=== PATIENT | male | born 1975 | race Caucasian/White ===

== ENCOUNTER 2017-01-09 18:50 | Inpatient (IN) | payer OTHER ==
[~2017-01-09] VITALS: Ht 165.1 cm; Wt 103.4 kg
[2017-01-09] MEDS ORDERED: IV NS 0.9% 1,000 ML BAG IV ONE (19:30)
--- NOTE | 2017-01-09 19:30 | NUR ---
Note tulio in EDM - 01/09/17 at 2152 by JAMIE 41 YP FEMALE BB AMBULANCE. PT IS ALERT X 3, C/O ABD PRESSURE LIKE PAIN. PT DS TO ER BED, SKIN WARM AND DRTY, RR EVEN AND UNLABORED. AWAITING ORDERS FROM PROVIDER
--- NOTE | 2017-01-09 19:30 | NUR ---
41 YO MALE BB AMBULANCE FROM [facility]. PT IS ALERT X 3, C/O ABDOMINAL PRESSURE LIKE PAIN. PT5 GOWNED, PLACED ON DRIER OPERATOR HELPER. SKIN WARM AND DRY, RR EVEN AND UNLABORED. NOTED COLOSTOMY BAG AND MAR CATH IN PLACE INFLATED PAD BUFFER. AWAITING ORDERS FROM PROVIDER, WILL CONTINUE TO MONITOR
[2017-01-09] MEDS ORDERED: ONDANSETRON HCL/PF 4 MG/2 ML VIAL ONE (19:35)
[2017-01-09] MEDS ORDERED: MORPHINE SULFATE INJ 4 MG/ML DISP.SYRIN ONE (19:36)
[2017-01-09 19:56] LABS: BASOPHILS % (AUTO) 0.9 % (0.0-2.0); EOSINOPHILS # (AUTO) 0.1 /CMM (0.0-0.7); EOSINOPHILS % (AUTO) 3.1 % (0.0-6.0); HEMATOCRIT 36 % (39-51); HEMOGLOBIN 11.5 g/dL (13.5-17.5); LYMPHOCYTES # (AUTO) 1.5 /CMM (0.8-4.8); LYMPHOCYTES % (AUTO) 31.6 % (20.0-44.0); MEAN CORPUSCULAR HEMOGLOBIN 25 PG (26.0-33.0); MEAN CORPUSCULAR HGB CONC 32 g/dl (31.0-36.0); MEAN CORPUSCULAR VOLUME 76 fL (80-96); MONOCYTES # (AUTO) 0.2 /CMM (0.1-1.30); MONOCYTES % (AUTO) 4.4 % (2.0-12.0); PLATELET COUNT (AUTO) 203 /CMM (150-450); RDW COEFFICIENT OF VARIATION 16.4 (11.5-15.0); RED BLOOD CELL COUNT(AUTO) 4.69 MIL/uL (4.5-6.0); WHITE BLOOD COUNT (AUTO) 4.8 K/uL (4.3-11.0)
[2017-01-09] MEDS ORDERED: MORPHINE SULFATE INJ 2 MG/ML DISP.SYRIN IV ONE (20:00)
[2017-01-09] MEDS ORDERED: ONDANSETRON HCL/PF - ER 4 MG/2 ML VIAL IV ONE (20:00)
[2017-01-09 20:06] LABS: CALCIUM, SERUM 8.3 mg/dL (8.5-10.1); CREATININE 0.8 mg/dL (0.6-1.3); POTASSIUM 3.6 mmol/L (3.5-5.1)
[2017-01-09 20:10] LABS: INR 1.02 (0.87-1.13); PROTHROMBIN TIME 10.6 SECS (9.5-12.7)
[2017-01-09 20:12] LABS: ALBUMIN 3.1 g/dL (3.4-5.0); BILIRUBIN,DIRECT 0.1 mg/dL (0.0-0.2); BILIRUBIN,TOTAL 0.2 mg/dL (0.2-1.0); TOTAL PROTEIN, SERUM 8.6 g/dL (6.4-8.2)
--- NOTE | 2017-01-09 20:21 | NUR ---
22G RIGHT SHOULD IV STARTED, MEDICATED PT ORDERED Addendum: 01/09/17 at 2151 by JAMIE 22G RIGHT SHOULDER IV STARTED
[2017-01-09 21:09] LABS: APPEARANCE,URINE Clear (CLEAR); BILIRUBIN,URINE Negative (NEGATIVE); BLOOD, URINE Small Ery/uL (NEGATIVE); COLOR,URINE Yellow (YELLOW); KETONES,URINE Negative (NEGATIVE); LEUKOCYTE ESTERASE ,URINE Small (NEGATIVE); NITRITE, URINE Negative (NEGATIVE); PH,URINE 6.5 (5.0-8.0); PROTEIN,URINE Trace mg/dl (NEGATIVE); UGLUCOSE Negative (NEGATIVE); UROBILINOGEN,URINE 0.2 EU/dL (0.2)
[2017-01-09 21:22] LABS: BACTERIA,URINE Few /HPF (None Seen); SQUAMOUS EPITHELIAL CELL,UR Few /HPF (None Seen)
--- NOTE | 2017-01-09 21:29 | NUR ---
FIXED MAR CATH ORDERED
--- NOTE | 2017-01-09 21:50 | NUR ---
CALLED DR LALITHA MAYNARD FOR PANEL ADMISSION
--- NOTE | 2017-01-09 22:00 | NUR ---
CALLED NURSING SUSTAINABLE DESIGN COORDINATOR FOR M/S BED
--- NOTE | 2017-01-09 22:30 | NUR ---
PT IS NOTED TO BE TACHYCARDIC. PER KYA PEÑA HE SPOKE WITH NUTELAPATHY AND THEY DECIDED PT WILL GO TO MS BED. WILL CONTINUE TO MONITIOR
[2017-01-09 23:00] VITALS: BP 141/85
--- NOTE | 2017-01-09 23:00 | NUR ---
MS RN INITIAL NOTE PT ADMITTED FROM ER FROM [facility]. PT WAS RECEIVED IN NO ACUTE DISTRESS. A/O X3. ON RA WITH ADEQUATE 02 SATURATION LEVEL. MAR CATHETER DRAINING WITH YELLOW CLOUDY URINE WITH SEDIMENT. IV 22G IN RIGHT SHOULDER WITH POSSIBLE DETACHMENT. CLEANED PATIENT AND TOOK PICTURES OF WOUNDS BEFORE DOING WOUND CARE. ALL NEEDS MET. COMFORT AND SAFETY MEASURES ENSURED. WILL CONTINUE TO MONITOR FOR ANY CHANGES.
[2017-01-09] MEDS ORDERED: ENOXAPARIN SODIUM 40 MG/0.4 ML DISP.SYRIN SQ ONE (23:52)
[2017-01-10] VITALS: BP 141/85
[2017-01-10] MEDS ORDERED: ACETAMINOPHEN 325 MG TABLET PO PRN
[2017-01-10] MEDS ORDERED: ENOXAPARIN SODIUM 40 MG/0.4 ML DISP.SYRIN SQ SCH
[2017-01-10] MEDS ORDERED: ONDANSETRON HCL/PF 4 MG/2 ML VIAL IVP PRN
[2017-01-10] MEDS ORDERED: Z GUARD REMEDY 2 OZ OINT TP PRN
[2017-01-10] MEDS ORDERED: MAGNESIUM HYDROXIDE 30 ML UDC PO PRN
[2017-01-10] MEDS ORDERED: ZOLPIDEM TARTRATE 5 MG TABLET PO PRN
[2017-01-10] MEDS: IV NS 0.9% 1,000 ML IV PRN ×2 (00:02→19:03)
--- NOTE | 2017-01-10 02:00 | NUR ---
RN NOTE CAPACITY PLANNING ENGINEER CAME DOWN TO TRY AND START NEW IV LINE SINCE THE IV LINE THAT WAS IN ON ADMISSION IS NO LONGER USEFUL. WILL CONTINUE TO MONITOR. ONE WAS STARTED ON RAC 22G.
[2017-01-10] MEDS ORDERED: BACL20TA PO (02:47)
[2017-01-10] MEDS ORDERED: GABA-536 PO (02:52)
[2017-01-10] MEDS ORDERED: LEVO750T21 PO (02:57)
[2017-01-10] MEDS ORDERED: SULF1TAB47 PO (02:58)
[2017-01-10] MEDS ORDERED: ZINC220C8 PO (03:00)
[2017-01-10] MEDS ORDERED: HYDR-552 PO (03:03)
[2017-01-10] MEDS ORDERED: ASCO500T9 PO (03:18)
[2017-01-10] MEDS ORDERED: DOCU-170 PO (03:22)
[2017-01-10] MEDS ORDERED: LACT10SO PO (03:23)
[2017-01-10] MEDS ORDERED: MULT1TAB73 PO (03:26)
[2017-01-10] MEDS ORDERED: SENN8.6T6 PO (03:27)
[2017-01-10 04:00] VITALS: BP 140/77
[2017-01-10] MEDS ORDERED: DEXTROSE 50%-WATER 50 ML DISP.SYRIN IV PRN (05:00)
[2017-01-10] MEDS ORDERED: HYDROCODONE/APAP 5/325MG 1 EACH TABLET PO SCH ×2 (05:00→07:30)
[2017-01-10] MEDS ORDERED: SENNOSIDES 8.6 MG TABLET PO PRN (05:00)
[2017-01-10] MEDS ORDERED: GABAPENTIN 400 MG CAPSULE ONE (05:28)
[2017-01-10 06:17] LABS: BASOPHILS % (AUTO) 0.7 % (0.0-2.0); EOSINOPHILS # (AUTO) 0.1 /CMM (0.0-0.7); EOSINOPHILS % (AUTO) 2.6 % (0.0-6.0); HEMATOCRIT 35 % (39-51); HEMOGLOBIN 11.3 g/dL (13.5-17.5); LYMPHOCYTES # (AUTO) 0.9 /CMM (0.8-4.8); LYMPHOCYTES % (AUTO) 16.9 % (20.0-44.0); MEAN CORPUSCULAR HEMOGLOBIN 25 PG (26.0-33.0); MEAN CORPUSCULAR HGB CONC 33 g/dl (31.0-36.0); MEAN CORPUSCULAR VOLUME 77 fL (80-96); MONOCYTES # (AUTO) 0.3 /CMM (0.1-1.30); MONOCYTES % (AUTO) 5.6 % (2.0-12.0); NEUTROPHILS # (AUTO) 4.1 /CMM (1.8-8.9); NEUTROPHILS % (AUTO) 74.2 % (43.0-81.0); PLATELET COUNT (AUTO) 150 /CMM (150-450); RDW COEFFICIENT OF VARIATION 17.5 (11.5-15.0); RED BLOOD CELL COUNT(AUTO) 4.48 MIL/uL (4.5-6.0); WHITE BLOOD COUNT (AUTO) 5.5 K/uL (4.3-11.0)
--- NOTE | 2017-01-10 06:32 | NUR ---
MS RN CLOSING NOTE PT IS IN NO ACUTE DISTRESS. PT IS ON RA WITH 02 SATURATION WNL. IV LINE ON RIGHT SHOULDER IS NO LONGER PATENT AND NEW IV PLACED IN RAC 22G IS NO LONGER PATENT WELL. OSTOMY BAG IS FILLING WELL AND CHANGED X1 DURING SHIFT. MAR CATHETER IS CLEAN DRY AND PATENT DRAINING YELLOW CLOUDY URINE WITH SEDIMENTS. SAFETY AND COMFORT MEASURES PLACED AND WILL ENDORSE CARE TO AM NURSE.
[2017-01-10 06:39] LABS: CALCIUM, SERUM 8.2 mg/dL (8.5-10.1); CREATININE 0.8 mg/dL (0.6-1.3); MAGNESIUM 1.6 mg/dL (1.8-2.4); PHOSPHORUS 2.8 mg/dL (2.5-4.9); POTASSIUM 4.1 mmol/L (3.5-5.1)
[2017-01-10 06:52] LABS: THYROID STIMULATING HORMONE 6.287 uIU/mL (0.358-3.74)
--- NOTE | 2017-01-10 07:10 | NUR ---
RN INITIAL NOTE PATIENT RECEIVED IN BED SLEEPING. EASILY AROUSED, ALERT AND ORIENTED. ABLE TO MAKE NEEDS KNOWN. NO S/S OF PAIN OR DISCOMFORT. RESPIRATIONS ARE EVEN AND UNLABORED. NO S/S OF RESPIRATORY DISTRESS OR SOB. SATING WELL ON ROOM AIR. MAR CATHETER DRAINING TO GRAVITY. IV SITE LEAKING. SCHEDULED FOR MIDLINE INSERTION THIS AM. SKIN IS WARM AND DRY TO TOUCH. SAFETY PRECAUTIONS IMPLEMENTED, BED IN LOCKED, LOW POSITION WITH TWO SIDE RAILS UP. CALL LIGHT AND BELONGINGS WITHIN EASY REACH. WILL CONTINUE TO MONITOR.
[2017-01-10 08:00] VITALS: BP 141/78
[2017-01-10] MEDS: GABAPENTIN 400 MG CAPSULE PO SCH ×3 (08:11→16:15)
[2017-01-10] MEDS: ASCORBIC ACID 500 MG TABLET PO SCH ×2 (08:11→16:15)
[2017-01-10] MEDS: BACLOFEN (10 MG) 10 MG TABLET PO SCH ×4 (08:11→21:00)
[2017-01-10] MEDS: LACTULOSE 10 G/15 ML UDC (PYXIS) PO SCH (08:11)
[2017-01-10] MEDS: ZINC SULFATE 220 MG CAPSULE PO SCH (08:12)
[2017-01-10] MEDS: PANTOPRAZOLE 40 MG TABLET.DR PO SCH (08:12)
[2017-01-10] MEDS: DOCUSATE SODIUM 100 MG CAPSULE PO SCH ×2 (08:12→16:15)
[2017-01-10] MEDS: MULTIVITAMINS,THERAGRAN 1 UDTAB TABLET PO SCH (08:15)
[2017-01-10] MEDS: BLOOD SUGAR DIAGNOSTIC 1 EACH STRIP VI SCH ×4 (08:15→21:00)
[2017-01-10] MEDS ORDERED: BACLOFEN (10 MG) 10 MG TABLET PO SCH (09:00)
[2017-01-10] MEDS: *INSULIN REGULAR(HUMULIN R)HUM 100 UNIT/ML VIAL SQ PRN (09:50)
[2017-01-10] MEDS: HYDROCODONE/APAP 5/325MG 1 EACH TABLET PO PRN ×2 (11:37→18:52)
[2017-01-10] MEDS: Magnesium 1GM/D5W 100ML PREMIX 100 ML IV SCH ×2 (11:37→12:47)
--- NOTE | 2017-01-10 13:22 | NUR ---
Social service consult requested by MELANIE ZHANNA Callahan to assess living situation. Pt. is a 41year old male who was admitted to [facility] for Osteomyelitis. ISABEL and supportive employment case manager Martha met with pt. bedside. Pt. is alert and oriented x3. Pt. appears disheveled and was lying in bed. Pt. informed SW he resides at a board and care located in [place] but could not recall the name of the facility or contact information. Pt. appeared confused at times. Pt. states he was at [facility]. Pt. states he has no source of income. Pt. gave SW phone number to his sister Ronit . ISABEL contacted pt. sister Ronit, who informed SW that she does not know the name or contact information for the board and care that pt. resides at. She informed SW that her dad and herself support pt. financially.
--- NOTE | 2017-01-10 14:18 | NUR ---
SW was informed by watch caser Martha that pt's RN Tara informed her that pt. resides at [facility] located at [address] [place] [address]. The sales administrator is Mayra Romero .
[2017-01-10 16:00] VITALS: BP 154/88
[2017-01-10] MEDS: INSULIN REGULAR, HUMAN 100 UNIT/ML 3 ML VIAL SQ PRN ×2 (17:58→21:20)
[2017-01-10] MEDS: MAG HYDROX/AL HYDROX/SIMETH 30 ML UDC PO PRN (18:51)
[2017-01-10] MEDS: ENOXAPARIN SODIUM 40 MG/0.4 ML DISP.SYRIN SQ SCH (21:06)
[2017-01-10] MEDS ORDERED: SULFAMETHOXAZOLE/TRIMETHOPRIM 10 ML in IV D5W 250 ML IV SCH (22:00)
[2017-01-10] MEDS: CEFEPIME 1 GM in IV D5W 50 ML IV SCH (23:27)
--- NOTE | 2017-01-10 23:27 | NUR ---
CLARIFIED WITH MR DRAKE THAT MEDICATION BACTRIM WAS ORDERED TO BE GIVEN EVERY TWO HOURS, VERIFIED THAT THE ORDER WAS ENTERED BY MISTAKE AND THAT SHE WOULD LIKE TO INITIATE MEDICATION IN THE AM AND TO HAVE PHARMACY TO DOSE, MEDICATION WAS MIXED AND SCANNED BY HAD NOT BE HANG YET SO IT WAS WAISTED, NURSING SHIPPING AND RECEIVING OPERATOR NOTIFIED OF WAISTING MEDICATION.
[2017-01-10] MEDS: MORPHINE SULFATE INJ 2 MG/ML DISP.SYRIN IV PRN (23:41)
[2017-01-11] VITALS: BP 138/79
[2017-01-11] MEDS: HYDROCODONE/APAP 5/325MG 1 EACH TABLET PO PRN ×4 (02:26→16:49)
[2017-01-11] MEDS: CEFEPIME 1 GM in IV D5W 50 ML IV SCH ×3 (05:24→20:15)
[2017-01-11] MEDS: MORPHINE SULFATE INJ 2 MG/ML DISP.SYRIN IV PRN ×3 (05:24→20:15)
[2017-01-11 06:33] VITALS: BP 104/61
[2017-01-11] MEDS: BLOOD SUGAR DIAGNOSTIC 1 EACH STRIP VI SCH ×4 (06:54→22:10)
[2017-01-11] MEDS: INSULIN REGULAR, HUMAN 100 UNIT/ML 3 ML VIAL SQ PRN (06:56)
--- NOTE | 2017-01-11 07:01 | NUR ---
MS RN CLOSING NOTE PT REMAINED STABLE DURING COOKING CHEF, NO SIGNIFICANT CHANGE OF CONDITION NOTED, WILL ENDORSE TO INCOMING NURSE FOR MILES.
[2017-01-11 07:06] LABS: BASOPHILS % (AUTO) 0.8 % (0.0-2.0); EOSINOPHILS # (AUTO) 0.2 /CMM (0.0-0.7); EOSINOPHILS % (AUTO) 4.3 % (0.0-6.0); HEMATOCRIT 29 % (39-51); HEMOGLOBIN 9.5 g/dL (13.5-17.5); LYMPHOCYTES # (AUTO) 0.9 /CMM (0.8-4.8); LYMPHOCYTES % (AUTO) 22.8 % (20.0-44.0); MEAN CORPUSCULAR HEMOGLOBIN 25 PG (26.0-33.0); MEAN CORPUSCULAR HGB CONC 33 g/dl (31.0-36.0); MEAN CORPUSCULAR VOLUME 77 fL (80-96); MONOCYTES # (AUTO) 0.3 /CMM (0.1-1.30); MONOCYTES % (AUTO) 8.5 % (2.0-12.0); NEUTROPHILS # (AUTO) 2.6 /CMM (1.8-8.9); NEUTROPHILS % (AUTO) 63.6 % (43.0-81.0); PLATELET COUNT (AUTO) 108 /CMM (150-450); RDW COEFFICIENT OF VARIATION 17.5 (11.5-15.0); RED BLOOD CELL COUNT(AUTO) 3.74 MIL/uL (4.5-6.0)
--- NOTE | 2017-01-11 07:30 | NUR ---
RN INITIAL NOTE PATIENT RECEIVED IN BED SLEEPING. EASILY AROUSED, ALERT AND ORIENTED. ABLE TO MAKE NEEDS KNOWN. NO S/S OF PAIN OR DISCOMFORT. RESPIRATIONS ARE EVEN AND UNLABORED. NO S/S OF RESPIRATORY DISTRESS OR SOB. SATING WELL ON ROOM AIR. MAR CATHETER DRAINING TO GRAVITY. MIDLINE KETURAH 20 [address] . SKIN IS WARM AND DRY TO TOUCH. SAFETY PRECAUTIONS OBSERVED. BED IN LOCKED, LOW POSITION WITH TWO SIDE RAILS UP. CALL LIGHT WITHIN REACH. WILL CONTINUE TO MONITOR.
[2017-01-11 07:38] LABS: CALCIUM, SERUM 7.7 mg/dL (8.5-10.1); CREATININE 0.8 mg/dL (0.6-1.3); MAGNESIUM 1.7 mg/dL (1.8-2.4); PHOSPHORUS 2.9 mg/dL (2.5-4.9); POTASSIUM 3.9 mmol/L (3.5-5.1)
--- NOTE | 2017-01-11 07:45 | NUR ---
WOUND CARE CONSULT PATIENT SEEN AND SKIN INTEGRITY ASSESSMENT DONE. PLEASE SEE MUSEUM PREPARATOR ASSESSMENT IN PCS FOR TODAY. PATIENT WITH FERNANDEZ AT 13. PATIENT IS ABLE TO REPOSITION HIMSELF WITH ASSIST, HE IS PARAPLEGIC BILATERAL LE, HAS COLOSTOMY FUNCTIONING WELL. PATIENT PRESENT WITH MULTIPLE PRESSURE ULCERS POA. PATIENT ON [facility] FOR TREATMENT. SURGICAL TEAM ON CASE AND PLANNING DEBRIDEMENT. TREATMENT ORDERS RECEIVED FROM SURGICAL TEAM. ALL DISCUSSED WITH NURSING STAFF. ALL PRESSURE ULCER PREVENTION MEASURES NOTED TO BE IN PLACE. MD IN AGREEMENT WITH PLAN OF CARE. Addendum: 01/11/17 at 0750 by ELISA HARTMANN WNDNU Amended: Links added.
[2017-01-11 08:00] VITALS: BP 164/105
[2017-01-11] MEDS ORDERED: Z GUARD REMEDY 2 OZ OINT TP PRN (08:00)
[2017-01-11] MEDS ORDERED: HYDROGEL DRESSING 90 GM TUBE TP PRN (08:00)
[2017-01-11] MEDS: BACLOFEN (10 MG) 10 MG TABLET PO SCH ×4 (08:13→20:15)
[2017-01-11] MEDS: LACTULOSE 10 G/15 ML UDC (PYXIS) PO SCH ×2 (08:13→09:00)
[2017-01-11] MEDS: DOCUSATE SODIUM 100 MG CAPSULE PO SCH ×2 (08:13→16:49)
[2017-01-11] MEDS: ZINC SULFATE 220 MG CAPSULE PO SCH (08:13)
[2017-01-11] MEDS: GABAPENTIN 400 MG CAPSULE PO SCH ×3 (08:14→16:49)
[2017-01-11] MEDS: MULTIVITAMINS,THERAGRAN 1 UDTAB TABLET PO SCH (08:14)
[2017-01-11] MEDS: ASCORBIC ACID 500 MG TABLET PO SCH ×2 (08:14→16:50)
[2017-01-11] MEDS: PANTOPRAZOLE 40 MG TABLET.DR PO SCH (08:14)
--- NOTE | 2017-01-11 08:19 | NUR ---
RN NOTE PATIENT REFUSED LACTULOSE STATES" I DONT NEED NO LACTULOSE " MEDICATION NOT ADMINISTERED. LATE ADMINSTRATION OF MEDICATION IV ANTIBIOTICS DUE TO THE DRUG NOT BEING AVAILABLE PHARMACY CONTACTED STATES THEY ARE WORKING ON THE ODER NOW
--- NOTE | 2017-01-11 08:36 | NUR ---
RN NOTE PT COMPANIED OF MAR CATHETER DISCOMFORT RN INSTRUCTED BY MD TO REPOSITION THE PATIENTS MAR PATIENT REFUSED REPOSITIONING AT THIS TIME HOWEVER THE PATIENT WILL BE OFFERED THIS AGAIN AT A LATER TIME. ALSO IT SHOULD BE NOTED THAT THE PATIENT HAS BLOOD TING IN COLOSTOMY BAG PATIENT STATES GENERALIZED PAIN THROUGHOUT HIS ENTIRE BODY, MINIMAL COLOSTOMY OUTPUT LAST SHIFT THE COLOSTOMY BAG WAS CHANGED ONCE THROUGH THE NIGHT
[2017-01-11] MEDS ORDERED: SULFAMETHOXAZOLE/TRIMETHOPRIM 10 ML in IV D5W 250 ML IV SCH (09:00)
[2017-01-11] MEDS: DAKINS QUARTER STRENGTH (0.125%) 480 ML BOTTLE TOP SCH ×2 (09:00→10:12)
[2017-01-11] MEDS: SULFAMETHOXAZOLE/TRIMETHOPRIM 15 ML in IV D5W 250 ML IV SCH ×2 (09:26→16:49)
[2017-01-11] MEDS: HYDROGEL DRESSING 90 GM TUBE TP SCH (10:11)
[2017-01-11] MEDS: Magnesium 1GM/D5W 100ML PREMIX 100 ML IV SCH ×2 (11:16→12:06)
[2017-01-11] MEDS ORDERED: SILVER NITRATE APPLICATOR 1 EA BOX TP ONE (11:30)
[2017-01-11] MEDS ORDERED: LIDOCAINE 2%-EPI 1:200,000 20 ML VIAL IJ ONE (12:00)
--- NOTE | 2017-01-11 12:26 | NUR ---
RN NOTE PATIENT REFUSE DEBRIDEMENT FOR TODAY . HOWEVER MD STATES SHE WILL TRY AGAIN TOMORROW. AFTER PATIENT REFUSED MULTIPLE TIMES DUE TO PAIN. NORCO ADMINISTERED HOWEVER PATIENT STATES HE NEEDS STRONGER PAIN MANAGEMENT. MD WILL BE NOTIFIED OF PATIENTS REQUEST AND WISHES FOR INCREASE IN PAINS MANAGEMENT, AND X-RAY FOR HIS BACK
[2017-01-11 16:00] VITALS: BP 145/86
--- NOTE | 2017-01-11 19:05 | NUR ---
RN OPENING NOTES RECEIVED REPORT FROM JENNIFER RUTHERFORD. PATIENT A/A/O X4, ABLE TO MAKE NEEDS KNOWN. BREATHING EVEN AND UNLABORED. NO C/O RESPIRATORY DISTRESS OR SOB. MAR CATH INTACT AND DRAINING YELLOW URINE. KETURAH MIDLINE #20 CDI, FLUIDS RUNNING @ 75ML/HR. SIDE RAILS UP, CALL LIGHT WITHIN REACH.
[2017-01-11 20:00] VITALS: BP 129/71
[2017-01-11] MEDS: ENOXAPARIN SODIUM 40 MG/0.4 ML DISP.SYRIN SQ SCH (20:16)
[2017-01-11] MEDS: *INSULIN REGULAR(HUMULIN R)HUM 100 UNIT/ML VIAL SQ PRN (22:11)
[2017-01-11] MEDS ORDERED: FLUCONAZOLE IN NS,PREMIX 200 MG in PREMIX 1 EA IV ONE ×2 (22:30)
--- NOTE | 2017-01-11 22:30 | NUR ---
RN NOTES SPOKE TO NELIA DRAKE REGARDING PATIENT'S C/O BACK PAIN AND PT'S REQUEST FOR BACK X-RAY AND ADDITIONAL PAIN MED. PER GAS MAKER HELPER, X-RAY WILL SHOW SAME RESULTS OF PREVIOUS X-RAY AND PAIN IS DUE TO DIAGNOSIS OF OSTEOMYELITIS. NO NEW ORDER RECEIVED FOR PAIN MED.
[2017-01-12] MEDS: SULFAMETHOXAZOLE/TRIMETHOPRIM 15 ML in IV D5W 250 ML IV SCH ×4 (00:40→23:08)
[2017-01-12 04:00] VITALS: BP 139/99
[2017-01-12] MEDS: IV NS 0.9% 1,000 ML IV PRN (05:37)
[2017-01-12] MEDS: CEFEPIME 1 GM in IV D5W 50 ML IV SCH ×3 (05:37→20:23)
[2017-01-12 06:27] LABS: BASOPHILS % (AUTO) 0.6 % (0.0-2.0); EOSINOPHILS # (AUTO) 0.2 /CMM (0.0-0.7); EOSINOPHILS % (AUTO) 5.6 % (0.0-6.0); HEMATOCRIT 31 % (39-51); MEAN CORPUSCULAR HEMOGLOBIN 25 PG (26.0-33.0); MEAN CORPUSCULAR HGB CONC 33 g/dl (31.0-36.0); MEAN CORPUSCULAR VOLUME 77 fL (80-96); MONOCYTES # (AUTO) 0.2 /CMM (0.1-1.30); MONOCYTES % (AUTO) 4.8 % (2.0-12.0); NEUTROPHILS # (AUTO) 2.3 /CMM (1.8-8.9); PLATELET COUNT (AUTO) 117 /CMM (150-450); RDW COEFFICIENT OF VARIATION 17.3 (11.5-15.0); RED BLOOD CELL COUNT(AUTO) 3.97 MIL/uL (4.5-6.0); WHITE BLOOD COUNT (AUTO) 3.7 K/uL (4.3-11.0)
[2017-01-12 06:49] LABS: CALCIUM, SERUM 7.8 mg/dL (8.5-10.1); CREATININE 0.8 mg/dL (0.6-1.3); MAGNESIUM 1.9 mg/dL (1.8-2.4)
--- NOTE | 2017-01-12 07:11 | NUR ---
RN CLOSING NOTES PATIENT RESTING IN BED, DOZING OFF INTERMITTENTLY. NO C/O RESPIRATORY DISTRESS OR SOB. PAIN MANAGED THROUGHOUT SHIFT. KETURAH INTACT W/ NS @ 75ML/HR, TOLERATING WELL. MAR INTACT AND DRAINING YELLOW URINE. OSTOMY BAG INTACT, CHANGED ONCE DURING SHIFT. NO SIGNIFICANT CHANGES DURING SHIFT. WILL ENDORSE MILES TO AM NURSE.
[2017-01-12 08:00] VITALS: BP 127/71
--- NOTE | 2017-01-12 08:00 | NUR ---
MS RN NOTES PATIENT IN BED RESTING, NO SOB OR ACUTE DISTRESS NOTED. BED IN LOW LOCKED POSITION. MIDLINE ON RIGHT UPPER ARM INTACT PATENT. WILL CONTINUE TO MONITOR.
[2017-01-12] MEDS: BLOOD SUGAR DIAGNOSTIC 1 EACH STRIP VI SCH ×4 (08:26→22:54)
[2017-01-12] MEDS: INSULIN REGULAR, HUMAN 100 UNIT/ML 3 ML VIAL SQ PRN (08:27)
[2017-01-12] MEDS: LACTULOSE 10 G/15 ML UDC (PYXIS) PO SCH (08:36)
[2017-01-12] MEDS: GABAPENTIN 400 MG CAPSULE PO SCH ×3 (08:36→17:07)
[2017-01-12] MEDS: DOCUSATE SODIUM 100 MG CAPSULE PO SCH ×2 (08:36→17:07)
[2017-01-12] MEDS: BACLOFEN (10 MG) 10 MG TABLET PO SCH ×4 (08:36→20:23)
[2017-01-12] MEDS: PANTOPRAZOLE 40 MG TABLET.DR PO SCH (08:36)
[2017-01-12] MEDS: ASCORBIC ACID 500 MG TABLET PO SCH ×2 (08:36→17:10)
[2017-01-12] MEDS: DAKINS QUARTER STRENGTH (0.125%) 480 ML BOTTLE TOP SCH ×2 (08:37)
[2017-01-12] MEDS: HYDROGEL DRESSING 90 GM TUBE TP SCH (08:38)
[2017-01-12] MEDS: MORPHINE SULFATE INJ 2 MG/ML DISP.SYRIN IV PRN ×3 (09:16→18:51)
[2017-01-12] MEDS: MULTIVITAMINS,THERAGRAN 1 UDTAB TABLET PO SCH (09:17)
[2017-01-12] MEDS: ZINC SULFATE 220 MG CAPSULE PO SCH (09:17)
[2017-01-12] MEDS ORDERED: DOSE PER PHARMACY MICAFUNGIN 1 EA XX PRN (10:00)
[2017-01-12] MEDS: MICAFUNGIN SODIUM 100 MG in IV NS 0.9% 100 ML IV SCH (10:55)
[2017-01-12 12:00] VITALS: BP 131/65
--- NOTE | 2017-01-12 15:00 | NUR ---
MS RN NOTES PATIENT UNDERWENT DEBRIDEMENT OF THE SACRUM WOUND AND BUTTOCKS WOUND. PATIENT TOLERATED WELL. WILL CONTINUE TO MONITOR.
[2017-01-12 16:00] VITALS: BP 126/87
[2017-01-12] MEDS: LACTOBACILLUS RHAMNOSUS GG 1 EACH CAP.SPRINK PO SCH (17:07)
--- NOTE | 2017-01-12 18:40 | NUR ---
MS RN NOTES PATIENT IN BED RESTING NO SOB OR ACUTE DISTRESS NOTED. ALL DUE MEDICATIONS ADMINISTERED. ALL NEEDS MET. PATIENT MIDLINE INTACT PATENT ON RIGHT UPPER ARM. PAIN WAS MANAGED WITH PRN MEDICATIONS. WILL ENDORSE CARE TO PM SHIFT.
--- NOTE | 2017-01-12 19:30 | NUR ---
MS/RN NOTES RECEIVED PT IN STABLE CONDITION. A&OX4. SITTING UP IN BED, CALM AND QUIET. R UPPER ARM MIDLINE #20 WITH NS @ 75 ML/HR INFUSING WELL, SITE CDI. COLOSTOMY BAG INTACT WITH DRAINAGE. MAR CATH INTACT WITH CLEAR YELLOW URINE. BUTTOCK/SACRAL DRSNG CDI. PT MADE AWARE OF PLAN OF CARE INCLUDING MEDICATION SCHEDULED AND BLOOD DRAWN IN AM. VERBALIZED UNDERSTANDING. REQUESTING FOR DIAPER TO USE AND GIVEN. NO OTHER CONCERNS MADE AT THIS TIME. BED AT LOWEST POSITION AND LOCKED, SRX3 UP, SIDE TABLE AND CALL RAMIREZ WITHIN REACH. BED ALARM ON FOR SAFETY MEASURES. WILL CONTINUE TO MONITOR.
[2017-01-12 20:00] VITALS: BP 113/66
[2017-01-12] MEDS: HYDROCODONE/APAP 5/325MG 1 EACH TABLET PO PRN (20:23)
[2017-01-12] MEDS: ENOXAPARIN SODIUM 40 MG/0.4 ML DISP.SYRIN SQ SCH (20:24)
[2017-01-12 23:05] VITALS: BP 140/79
[2017-01-13] MEDS: MORPHINE SULFATE INJ 2 MG/ML DISP.SYRIN IV PRN ×6 (01:56→22:20)
[2017-01-13 04:00] VITALS: BP 124/72
[2017-01-13] MEDS: CEFEPIME 1 GM in IV D5W 50 ML IV SCH ×3 (04:32→21:11)
[2017-01-13] MEDS: IV NS 0.9% 1,000 ML IV PRN ×2 (04:32→22:24)
[2017-01-13] MEDS: HYDROCODONE/APAP 5/325MG 1 EACH TABLET PO PRN ×2 (04:49→12:22)
--- NOTE | 2017-01-13 05:30 | NUR ---
MS/RN NOTES PATIENT C/O OF "ANIMALS/INSECT CRAWLING" INSIDE HIS BACK AND LEFT LEG, LIKE TINGLING. STATES THAT HE STARTED FEELING THIS RIGHT AFTER THE DEBRIDGEMENT. TRAVON LOWER EXTREMITY WARM TO TOUCH. REQUESTING FOR AN XRAY OR MRI. PATIENT FEELING UPSET.
[2017-01-13 05:53] LABS: BASOPHILS % (AUTO) 0.6 % (0.0-2.0); EOSINOPHILS # (AUTO) 0.3 /CMM (0.0-0.7); EOSINOPHILS % (AUTO) 5.3 % (0.0-6.0); HEMATOCRIT 35 % (39-51); HEMOGLOBIN 11.2 g/dL (13.5-17.5); LYMPHOCYTES % (AUTO) 21.1 % (20.0-44.0); MEAN CORPUSCULAR HEMOGLOBIN 25 PG (26.0-33.0); MEAN CORPUSCULAR HGB CONC 32 g/dl (31.0-36.0); MEAN CORPUSCULAR VOLUME 77 fL (80-96); MONOCYTES # (AUTO) 0.2 /CMM (0.1-1.30); MONOCYTES % (AUTO) 4.8 % (2.0-12.0); NEUTROPHILS # (AUTO) 3.3 /CMM (1.8-8.9); NEUTROPHILS % (AUTO) 68.2 % (43.0-81.0); PLATELET COUNT (AUTO) 151 /CMM (150-450); RDW COEFFICIENT OF VARIATION 17.8 (11.5-15.0); RED BLOOD CELL COUNT(AUTO) 4.49 MIL/uL (4.5-6.0); WHITE BLOOD COUNT (AUTO) 4.8 K/uL (4.3-11.0)
[2017-01-13 06:03] LABS: CALCIUM, SERUM 8.2 mg/dL (8.5-10.1); CREATININE 0.8 mg/dL (0.6-1.3); MAGNESIUM 1.8 mg/dL (1.8-2.4); PHOSPHORUS 3.1 mg/dL (2.5-4.9); POTASSIUM 3.8 mmol/L (3.5-5.1)
--- NOTE | 2017-01-13 06:48 | NUR ---
MS/RN NOTES A&OX4. DINNER TRAY NOT TOUCHED UNTIL NOW. STATES HE HAS NO APPETITE. BS 94. ENCOURAGED TO EAT. IVF INFUSING WELL. STATES MEDICATION DOES NOT GIVE HIM RELIEF ALTHOUGH HE HAS BEEN SLEEPING AFTER ADMINISTRATION OF FIRST 2 DOSES OF MORPHINE LAST NIGHT. SACRAL/BUTTOCK DRSNG INTACT. COLOSTOMY BAG WITH SCANT BROWN LIQUID OUTPUT. PT REFUSED TO HAVE IT DRAINED. HYPOACTIVE BOWEL SOUND. MAR LEAKING. PATIENT REFUSED TO HAVE IT CHECKED AND HE IS INSISTING HE WANTS TO IRRIGATE IT HIMSELF. PT GOT ANGRY WHEN I REFUSED TO GIVE HIM THE IRRIGATION SYRINGE EXPLAINING I CAN HELP HIM SO TO AVOID INFECTION. PT GOT ANGRY AND THREW ITEMS THAT WAS ON HIS TABLE. PT GOT A 10CC SYRINGE AT BEDSIDE TABLE AND STARTED MANIPULATING MAR. HE ASPIRATED URINE AND THEN SQUIRTED IT A FEET AWAY FROM ME AND [facility]. ENDORSED TO NEXT SHIFT FOR CONTINUITY OF CARE. SAFETY MEASURES IN PLACE.
--- NOTE | 2017-01-13 07:15 | NUR ---
RN INITIAL NOTE PATIENT RECEIVED IN BED. PATIENT IS ALERT AND ORIENTED. ABLE TO MAKE NEEDS KNOWN. RESPIRATIONS ARE EVEN AND UNLABORED. SATING WELL ON ROOM AIR. NO S/S OF RESPIRATORY DISTRESS OR SOB. MAR CATHETER DRAINING TO GRAVITY. IV SITE FLUSHED, PATENT. SKIN IS WARM AND DRY TO TOUCH. SAFETY PRECAUTIONS IMPLEMENTED. BED IN LOCKED, LOW POSITION WITH TWO SIDE RAILS UP. CALL LIGHT AND BELONGINGS WITHIN REACH. WILL CONTINUE TO MONITOR CLOSELY.
[2017-01-13 08:00] VITALS: BP 112/67
--- NOTE | 2017-01-13 08:15 | NUR ---
RN NOTE PATIENT COMPLAINING OF CHRONIC, UNRELENTING ABDOMINAL PAIN. MD MADE AWARE.
[2017-01-13] MEDS: ZINC SULFATE 220 MG CAPSULE PO SCH (08:42)
[2017-01-13] MEDS: MULTIVITAMINS,THERAGRAN 1 UDTAB TABLET PO SCH (08:42)
[2017-01-13] MEDS: GABAPENTIN 400 MG CAPSULE PO SCH ×3 (08:42→16:36)
[2017-01-13] MEDS: LACTULOSE 10 G/15 ML UDC (PYXIS) PO SCH (08:42)
[2017-01-13] MEDS: BLOOD SUGAR DIAGNOSTIC 1 EACH STRIP VI SCH ×4 (08:42→21:19)
[2017-01-13] MEDS: BACLOFEN (10 MG) 10 MG TABLET PO SCH ×4 (08:42→21:06)
[2017-01-13] MEDS: DOCUSATE SODIUM 100 MG CAPSULE PO SCH ×2 (08:42→16:36)
[2017-01-13] MEDS: PANTOPRAZOLE 40 MG TABLET.DR PO SCH (08:42)
[2017-01-13] MEDS: LACTOBACILLUS RHAMNOSUS GG 1 EACH CAP.SPRINK PO SCH ×2 (08:42→16:36)
[2017-01-13] MEDS: ASCORBIC ACID 500 MG TABLET PO SCH ×2 (08:42→16:36)
[2017-01-13] MEDS: DAKINS QUARTER STRENGTH (0.125%) 480 ML BOTTLE TOP SCH ×2 (08:43)
[2017-01-13] MEDS: HYDROGEL DRESSING 90 GM TUBE TP SCH (08:43)
[2017-01-13] MEDS: SULFAMETHOXAZOLE/TRIMETHOPRIM 15 ML in IV D5W 250 ML IV SCH ×2 (08:48→16:35)
[2017-01-13] MEDS: MICAFUNGIN SODIUM 100 MG in IV NS 0.9% 100 ML IV SCH (09:50)
[2017-01-13 10:11] LABS: ALBUMIN 3.1 g/dL (3.4-5.0); BILIRUBIN,DIRECT 0.1 mg/dL (0.0-0.2); BILIRUBIN,TOTAL 0.3 mg/dL (0.2-1.0); TOTAL PROTEIN, SERUM 7.9 g/dL (6.4-8.2)
[2017-01-13 10:24] VITALS: BP 112/67
--- NOTE | 2017-01-13 14:00 | NUR ---
RN NOTE PATIENT HAS [employer] SALES CONSULTANT WHO HELPS WITH PLACEMENT AND MEDICAL CARE. REQUEST TO BE CONTACTED TO HELP DETERMINE CARE AND DECISION MAKING. CONTACT NUMBER [phone]. PUT INFORMATION IN PATIENTS CHART.
[2017-01-13 16:00] VITALS: BP 117/66
--- NOTE | 2017-01-13 19:15 | NUR ---
RN opening notes: Received pt on bed awake alox4 and verbally responsive. on room air, with even and unlabored breathing. patient very concerned about his matthew catheter that it was leaking and tried to manipulate it also he was demanding for a shower. explained to patient that I will assess his matthew catheter, upon assessment no leakage noted a this time. assisted patient in bed bath. skin care and wound dressing change as ordered. patient noted to be calmer at this time. safety measures ensured. call light within reach. 1999 transfer of care report given to Annabella RUTHERFORD. patient not in distress at this time.
[2017-01-13 20:00] VITALS: BP 141/86
--- NOTE | 2017-01-13 20:00 | NUR ---
ms rn notes received pts on bed awake alert and responsive , no sob no distress noted , no c/o of pain at this time.on r/a sating 98% v/s stable afebrile.all needs attended too call light within reach .all due meds given as ordered ,with hector midline intact and patent with ivf of ns at 75cc/hr infusing well. with colostomy intact and patent ,f/c in situ draining with yellowish urine output.kept pts clean dry and comfortable. will continue to monitor pts.
[2017-01-13] MEDS: ENOXAPARIN SODIUM 40 MG/0.4 ML DISP.SYRIN SQ SCH (21:09)
[2017-01-13] MEDS: *INSULIN REGULAR(HUMULIN R)HUM 100 UNIT/ML VIAL SQ PRN (21:20)
--- NOTE | 2017-01-13 22:00 | NUR ---
ms rn notes blood sugar for 10pm is 107mg/dl no insulin coverage given per sliding scale, pts on po and ivf ns at 75cc/hr.
--- NOTE | 2017-01-13 22:10 | NUR ---
ms rn notes morphine 2 mg ivp given as ordered for back pain, will continue to monitor.
[2017-01-14] MEDS: SULFAMETHOXAZOLE/TRIMETHOPRIM 15 ML in IV D5W 250 ML IV SCH ×4 (00:15→23:42)
[2017-01-14] MEDS: MORPHINE SULFATE INJ 2 MG/ML DISP.SYRIN IV PRN ×4 (02:31→15:39)
[2017-01-14] MEDS: HYDROCODONE/APAP 5/325MG 1 EACH TABLET PO PRN ×2 (02:58→09:17)
[2017-01-14 04:00] VITALS: BP 128/86
[2017-01-14] MEDS ORDERED: MORPHINE SULFATE INJ 2 MG/ML DISP.SYRIN ONE (04:25)
--- NOTE | 2017-01-14 04:25 | NUR ---
MS RN NOTES PTS STILL COMPLAINING OF GENERALIZED PAIN 03/28. CALLED AND SPOKE TO VIANEY HIGUERA BUTTON PUSHER EPIC SOLAR SALES ESTIMATOR , RELAYED PTS CONCERN , WITH ORDER MADE AND CARRIED OUT , TO GIVE MORPHINE 2 MG IV X 1 , WILL CONTINUE TO MONITOR PTS.
[2017-01-14] MEDS ORDERED: MORPHINE SULFATE INJ 2 MG/ML DISP.SYRIN IV ONE (04:30)
[2017-01-14] MEDS: CEFEPIME 1 GM in IV D5W 50 ML IV SCH ×3 (05:19→21:21)
[2017-01-14] MEDS: BLOOD SUGAR DIAGNOSTIC 1 EACH STRIP VI SCH ×4 (06:39→22:15)
[2017-01-14] MEDS: INSULIN REGULAR, HUMAN 100 UNIT/ML 3 ML VIAL SQ PRN ×2 (06:40→17:23)
--- NOTE | 2017-01-14 07:00 | NUR ---
MS RN NOTES BLOOD SUGAR FOR 730AM IS 120MG/DL NO COVERAGE GIVEN PER SLIDING SCALE , PTS NON COMPLIANT TO CARE , V/S STABLE AFEBRILE , WILL ENDORSE TO RN DAY SHIFT FOR CONTINUITY OF CARE.
[2017-01-14 07:06] LABS: CALCIUM, SERUM 8.5 mg/dL (8.5-10.1); CREATININE 0.9 mg/dL (0.6-1.3); MAGNESIUM 1.6 mg/dL (1.8-2.4); POTASSIUM 4.4 mmol/L (3.5-5.1)
--- NOTE | 2017-01-14 07:13 | NUR ---
RN opening notes: Patient received in bed asleep, easily awakens. A/o x4, verbally responsive with no c/o pain or discomforts at this time. On room air, respiration even and unlabored. contact precautions maintained. Weaver catheter in place and draining clear yellowish urine. Jacqueline midline intact and patent with ivf of NS at 75ml/hr infusing well. Call light within reach of pt, bed low and locked. Will maintain all safety measures and will continue to monitor pt accordingly.
[2017-01-14 07:58] LABS: BASOPHILS % (AUTO) 0.4 % (0.0-2.0); EOSINOPHILS # (AUTO) 0.2 /CMM (0.0-0.7); EOSINOPHILS % (AUTO) 2.9 % (0.0-6.0); HEMATOCRIT 31 % (39-51); HEMOGLOBIN 10.1 g/dL (13.5-17.5); LYMPHOCYTES # (AUTO) 0.9 /CMM (0.8-4.8); LYMPHOCYTES % (AUTO) 17.8 % (20.0-44.0); MEAN CORPUSCULAR HEMOGLOBIN 25 PG (26.0-33.0); MEAN CORPUSCULAR HGB CONC 33 g/dl (31.0-36.0); MEAN CORPUSCULAR VOLUME 77 fL (80-96); MONOCYTES # (AUTO) 0.3 /CMM (0.1-1.30); MONOCYTES % (AUTO) 6.6 % (2.0-12.0); NEUTROPHILS # (AUTO) 3.8 /CMM (1.8-8.9); NEUTROPHILS % (AUTO) 72.3 % (43.0-81.0); PLATELET COUNT (AUTO) 141 /CMM (150-450); RDW COEFFICIENT OF VARIATION 17.2 (11.5-15.0); RED BLOOD CELL COUNT(AUTO) 4.02 MIL/uL (4.5-6.0); WHITE BLOOD COUNT (AUTO) 5.2 K/uL (4.3-11.0)
[2017-01-14 08:00] VITALS: BP 120/80
[2017-01-14] MEDS: GABAPENTIN 400 MG CAPSULE PO SCH ×3 (08:57→17:12)
[2017-01-14] MEDS: LACTOBACILLUS RHAMNOSUS GG 1 EACH CAP.SPRINK PO SCH ×2 (08:57→17:12)
[2017-01-14] MEDS: ASCORBIC ACID 500 MG TABLET PO SCH ×2 (08:58→17:12)
[2017-01-14] MEDS: PANTOPRAZOLE 40 MG TABLET.DR PO SCH (08:58)
[2017-01-14] MEDS: DOCUSATE SODIUM 100 MG CAPSULE PO SCH ×2 (08:58→17:12)
[2017-01-14] MEDS: MULTIVITAMINS,THERAGRAN 1 UDTAB TABLET PO SCH (08:58)
[2017-01-14] MEDS: BACLOFEN (10 MG) 10 MG TABLET PO SCH ×4 (08:58→21:21)
[2017-01-14] MEDS: ZINC SULFATE 220 MG CAPSULE PO SCH (08:58)
[2017-01-14] MEDS: LACTULOSE 10 G/15 ML UDC (PYXIS) PO SCH (08:59)
[2017-01-14] MEDS: HYDROGEL DRESSING 90 GM TUBE TP SCH (09:00)
[2017-01-14] MEDS: DAKINS QUARTER STRENGTH (0.125%) 480 ML BOTTLE TOP SCH ×2 (09:00→09:01)
[2017-01-14] MEDS: MICAFUNGIN SODIUM 100 MG in IV NS 0.9% 100 ML IV SCH (09:03)
--- NOTE | 2017-01-14 09:35 | NUR ---
RN NOTES Pt noted with low Magnesium level 1.6, to be replaced with 1mg/100ml of D5W x2 bags. Will continue to monitor patient.
[2017-01-14] MEDS: Magnesium 1GM/D5W 100ML PREMIX 100 ML IV SCH ×2 (10:13→11:16)
[2017-01-14] MEDS: MAG HYDROX/AL HYDROX/SIMETH 30 ML UDC PO PRN (13:23)
--- NOTE | 2017-01-14 14:10 | NUR ---
RN NOTES PATIENT FINALLY AGREED TO BE TRANSFERRED BACK TO BED. JULIETA LIFT WAS USED TO TRANSFER PT TO BED. MAINTAINED BED AT LOWES POSSIBLE POSITION AND LOCK. PUT SIDE-RAILS UP AND PUT BED ALARM ON. SITTER WAS ORDERED FOR CLOSE SUPERVISION. WILL CONTINUE TO MONITOR.
--- NOTE | 2017-01-14 14:12 | NUR ---
RN NOTES AT 1330H, PT FOUND SITTING ON THE FLOOR AT THE RIGHT SIDE OF HIS BED. ASKED PT WHAT HAPPEN, HE STATED THAT HE WAS TRYING TO REPOSITION HIMSELF IN BED AND SLID TO THE FLOOR. ASSESSMENT DONE, NO VISIBLE INJURY NOTED. PT IS PARAPLEGIC. UPPER EXTREMITIES INTACT AND ABLE TO MOVE W/O PROBLEM. V/S CHECKED: BP 117/87, R 16, P 96, T 98.2F AND SP02 98%. ADAMANTLY REFUSED TO BE TRANSFERRED BACK TO BED DESPITE SEVERAL ATTEMPTS TO CONVINCE HIM TO TRANSFER HIM. CHARGE NURSE AND MD MADE AWARE.
--- NOTE | 2017-01-14 14:16 | NUR ---
RN NOTES DR SARMIENTO ORDER TO CLOSELY MONITOR PT AND MAINTAIN ALL SAFETY AND FALL PRECAUTIONS. NO DIAGNOSTIC EXAMINATION ORDERED AT THIS TIME. WILL CONTINUE TO MONITOR.
[2017-01-14 16:00] VITALS: BP 155/89
--- NOTE | 2017-01-14 18:49 | NUR ---
RN CLOSING NOTES: Patient sitting in bed a/o x4 and able to voiced out needs and concerns. Sitter at bedside for close monitoring. All due meds given as ordered and tolerated. On room air, breathing even and unlabored. Contact precautions maintained. Colostomy on left side of abdomen with output of 35ml of brownish soft to watery feces noted to colostomy bag this shift. Weaver in place and draining clear yellowish urine to BSD. Midline on KETURAH intact and patent with IVF of NS @ 75ml/hr infusing well. Call light within reach of pt, bed low and locked. All safety measures maintained. All needs and care provided well. Will endorsed to abstract searcher nurse for arina.
--- NOTE | 2017-01-14 19:00 | NUR ---
RN NOTES: RECEIVED PATIENT LYING COMFORTABLY IN BED, WITH SITTER,ALERT AND COHERENT X4, ON ISOLATION PRECAUTION FOR CRE, COLOSTOMY INTACT WITH DRAINAGE, MAR CATH IN SITE WITH URINE OUTPUT OF 200CC LEVEL,IVF OV NS AT 75CC/HR ONGOING VIA RIGHT UPPER ARM MIDLINE,PATIENT IS COMFORTABLE, NO COMPLAINTS OF PAIN , NO SIGN OF SOB OR RESPIRATORY DISTRESS NOTED AT THIS TIME.WILL CONTINUE TO MONITOR.FALL, SAFETY PRECAUTION OBSERVE.BED LOW AND LOCKED, CALL LIGHT WITHIN EASY REACH.
[2017-01-14 20:00] VITALS: BP_SYST 135; BP_SYST 94; BP_DIAS 39; BP_DIAS 79
[2017-01-14] MEDS: ENOXAPARIN SODIUM 40 MG/0.4 ML DISP.SYRIN SQ SCH (21:22)
[2017-01-14] MEDS: IV NS 0.9% 1,000 ML IV PRN (21:23)
--- NOTE | 2017-01-14 22:10 | NUR ---
RN NOTES:BLOOD SUGAR CHECK RESULT-92, NO INSULIN GIVEN PER SCALE,WILL CONTINUE TO MONITOR FOR SIGN OF HYPER AND HYPOGLYCEMIA,DIAPER WAS CHANGE, DRESSING CHANGE ON THE SACRAL AREA.ivf REPLACE WITH NEW BOTTLE AT 2122;CALL LIGHT WITHIN REACH.
[2017-01-14] MEDS: *INSULIN REGULAR(HUMULIN R)HUM 100 UNIT/ML VIAL SQ PRN (22:16)
[2017-01-15] VITALS: BP 103/69
--- NOTE | 2017-01-15 01:44 | NUR ---
RN NOTES: AWAKE MOST OF THE TIME, NOT IN PAIN, OFFERED HIS SLEEPING PILL, HE REFUSED TO TAKE, KEEP, ON CLOSE SUPERVISION.CALLS AND NEEDS ATTENDED.
[2017-01-15] MEDS: MORPHINE SULFATE INJ 2 MG/ML DISP.SYRIN IV PRN ×3 (03:17→13:42)
--- NOTE | 2017-01-15 03:22 | NUR ---
RN NOTES: COMPLAINED OF STOMACH PAIN 03/28,REQUEST FOR HIS MORPHINE IV, BP-147/98 MT-96.PATIENT WANTS TO BE TRANSFERRED TO OTHER HOSPITAL, EXPLAINED TO HIM, HE JUST GOT HIS PAIN MEDICATION,NEEDS TO WAIT FOR SOMETIME TO TAKE EFFECT.KEPT ON CLOSE WATCH.
[2017-01-15 04:00] VITALS: BP 147/98
[2017-01-15] MEDS: CEFEPIME 1 GM in IV D5W 50 ML IV SCH ×3 (05:08→20:46)
--- NOTE | 2017-01-15 06:35 | NUR ---
RN NOTES: PAIN SUBSIDE,REFUSE TO CHANGE HIS COLOSTOMY BAG,EXPLAINED TO HIM WE NEED TO MEASURE THE OUTPUT AT THE END OF THE SHIFT, LATER ON HE COOPERATE, COLOSTOMY OUTPUT IS 300, MAR CATH CATH=1,000,ALL DRAINED.
--- NOTE | 2017-01-15 07:07 | NUR ---
RN NOTES: CALLS AND NEEDS ATTENDED, ENDORSED TO NEXT SHIFT FOR CONTINUITY OF CARE.
[2017-01-15] MEDS: BLOOD SUGAR DIAGNOSTIC 1 EACH STRIP VI SCH ×4 (07:30→22:00)
--- NOTE | 2017-01-15 07:30 | NUR ---
MS RN NOTES RECEIVED PATIENT IN BED SITTING UPRIGHT, APPEARS ANXIOUS. ON ROOM AIR, BREATHING EVEN AND NON LABORED, NO SOB. OFFERED TO REPOSITION IN BED BUT REFUSED. MAR CATH INTACT, DRAINING TO GRAVITY, URINE YELLOW. IVF NS INFUSING AT 75ML/HR. CALL LIGHT WITHIN REACH, BED LOW AND LOCKED, 1:1 SITTER AT THE BEDSIDE. WILL CONT TO MONITOR.
[2017-01-15] MEDS: PANTOPRAZOLE 40 MG TABLET.DR PO SCH (07:55)
[2017-01-15 08:00] VITALS: BP 130/93
--- NOTE | 2017-01-15 08:00 | NUR ---
BS WAS 101MG/DL AT 0648AM
[2017-01-15 08:02] LABS: CALCIUM, SERUM 8.5 mg/dL (8.5-10.1); CREATININE 0.8 mg/dL (0.6-1.3); MAGNESIUM 1.8 mg/dL (1.8-2.4); POTASSIUM 4.1 mmol/L (3.5-5.1)
[2017-01-15] MEDS ORDERED: FEE PK DOSING 1 MIN EA MC ONE (08:04)
[2017-01-15] MEDS: LACTOBACILLUS RHAMNOSUS GG 1 EACH CAP.SPRINK PO SCH ×2 (08:42→18:41)
[2017-01-15] MEDS: ZINC SULFATE 220 MG CAPSULE PO SCH (08:42)
[2017-01-15] MEDS: ASCORBIC ACID 500 MG TABLET PO SCH ×2 (08:42→18:39)
[2017-01-15] MEDS: BACLOFEN (10 MG) 10 MG TABLET PO SCH ×4 (08:42→21:25)
[2017-01-15] MEDS: MICAFUNGIN SODIUM 100 MG in IV NS 0.9% 100 ML IV SCH (08:49)
[2017-01-15] MEDS: GABAPENTIN 400 MG CAPSULE PO SCH ×3 (08:52→18:39)
[2017-01-15] MEDS: DOCUSATE SODIUM 100 MG CAPSULE PO SCH ×2 (08:52→18:41)
[2017-01-15] MEDS: MULTIVITAMINS,THERAGRAN 1 UDTAB TABLET PO SCH (08:52)
[2017-01-15] MEDS: LACTULOSE 10 G/15 ML UDC (PYXIS) PO SCH (08:58)
[2017-01-15] MEDS: DAKINS QUARTER STRENGTH (0.125%) 480 ML BOTTLE TOP SCH ×2 (09:32)
[2017-01-15] MEDS: HYDROGEL DRESSING 90 GM TUBE TP SCH (09:32)
[2017-01-15] MEDS: VANCOMYCIN 1.25 GM in IV D5W 500 ML IV SCH ×2 (10:14→21:25)
[2017-01-15] MEDS: INSULIN REGULAR, HUMAN 100 UNIT/ML 3 ML VIAL SQ PRN ×2 (12:26→17:46)
[2017-01-15] MEDS: OLANZAPINE 5 MG/TAB.RAPDIS PO SCH ×2 (13:30→18:39)
--- NOTE | 2017-01-15 13:30 | NUR ---
PATIENT STILL WITH ANXIETY BEHAVIOR, TRYING TO SLIDE HIMSELF TO EDGE OF THE BED. MAINTAIN BED SIDE RAILS UP, 1:1 SITTER AT THE BEDSIDE. PATIENT IS SEEN BY DR. GUIDRY TODAY.
[2017-01-15 16:00] VITALS: BP 132/75
[2017-01-15 16:41] VITALS: BP 132/75
[2017-01-15] MEDS: IV NS 0.9% 1,000 ML IV PRN (17:50)
--- NOTE | 2017-01-15 18:52 | NUR ---
MS RN CLOSING NOTES PATIENT IN BED, NOT IN DISTRESS. NO S/S OF HYPO/HYPERGLYCEMIA. ON ANTIBIOTIC WITH NO ADVERSE REACTION, AFEBRILE, NO DIARRHEA. APPEARS CALM AND RELAX IN BED. SKIN CARE PROVIDED, WOUND DRESSING CHANGED. ON CONTACT ISOLATION-CRE WOUND. WILL ENDORSE TO POSTAL SERVICE WINDOW CLERK RN FOR CONTINUITY OF CARE.
--- NOTE | 2017-01-15 19:23 | NUR ---
RN NOTES IN BED SLEEPING WITH NO RESPIRATORY DISTRESS OR SHORTNESS OF BREATH. BREATHING EVEN AND UNLABORED. NO PHYSICAL MANIFESTATION OF PAIN. COLOSTOMY BAG IN PLACE WITH SMALL AMOUNT OF BOWEL. MAR CATHETER IN PLACE, DRAINING CLEAR YELLOW WITH NO FOUL ODOR URINE. KTEURAH MIDLINE PATENT, NS @75CC/HR TOLERATING WELL. WILL CONTINUE TO MONITOR
[2017-01-15 20:00] VITALS: BP 121/70
[2017-01-15] MEDS: ENOXAPARIN SODIUM 40 MG/0.4 ML DISP.SYRIN SQ SCH (20:53)
[2017-01-15] MEDS: *INSULIN REGULAR(HUMULIN R)HUM 100 UNIT/ML VIAL SQ PRN ×2 (23:04→23:05)
[2017-01-16 04:00] VITALS: BP 110/69
[2017-01-16] MEDS: CEFEPIME 1 GM in IV D5W 50 ML IV SCH ×3 (04:21→21:06)
[2017-01-16 07:22] LABS: MAGNESIUM 1.7 mg/dL (1.8-2.4); PHOSPHORUS 3.1 mg/dL (2.5-4.9)
[2017-01-16 07:29] LABS: BASOPHILS % (AUTO) 0.5 % (0.0-2.0); EOSINOPHILS # (AUTO) 0.3 /CMM (0.0-0.7); EOSINOPHILS % (AUTO) 6.5 % (0.0-6.0); HEMATOCRIT 33 % (39-51); HEMOGLOBIN 10.8 g/dL (13.5-17.5); LYMPHOCYTES # (AUTO) 1.2 /CMM (0.8-4.8); LYMPHOCYTES % (AUTO) 28.5 % (20.0-44.0); MEAN CORPUSCULAR HEMOGLOBIN 25 PG (26.0-33.0); MEAN CORPUSCULAR HGB CONC 33 g/dl (31.0-36.0); MEAN CORPUSCULAR VOLUME 77 fL (80-96); MONOCYTES # (AUTO) 0.4 /CMM (0.1-1.30); MONOCYTES % (AUTO) 9.3 % (2.0-12.0); NEUTROPHILS # (AUTO) 2.3 /CMM (1.8-8.9); NEUTROPHILS % (AUTO) 55.2 % (43.0-81.0); PLATELET COUNT (AUTO) 138 /CMM (150-450); RDW COEFFICIENT OF VARIATION 18.5 (11.5-15.0); RED BLOOD CELL COUNT(AUTO) 4.29 MIL/uL (4.5-6.0); WHITE BLOOD COUNT (AUTO) 4.2 K/uL (4.3-11.0)
[2017-01-16] MEDS: BLOOD SUGAR DIAGNOSTIC 1 EACH STRIP VI SCH ×4 (07:30→21:40)
--- NOTE | 2017-01-16 07:30 | NUR ---
MS RN NOTES RECEIVED PATIENT IN BED SLEEPING, APPEARS ANXIOUS. ON ROOM AIR, BREATHING EVEN AND NON LABORED, NO SOB. OFFERED TO REPOSITION IN BED BUT REFUSED. MAR CATH INTACT, DRAINING TO GRAVITY, URINE YELLOW. IVF NS INFUSING AT 75ML/HR. CALL LIGHT WITHIN REACH, BED LOW AND LOCKED, 1:1 SITTER AT THE BEDSIDE. WILL CONT TO MONITOR.
[2017-01-16 08:00] VITALS: BP 147/87
[2017-01-16] MEDS: MICAFUNGIN SODIUM 100 MG in IV NS 0.9% 100 ML IV SCH (08:47)
[2017-01-16] MEDS: LACTOBACILLUS RHAMNOSUS GG 1 EACH CAP.SPRINK PO SCH ×2 (08:47→16:28)
[2017-01-16] MEDS: DOCUSATE SODIUM 100 MG CAPSULE PO SCH ×2 (08:47→16:28)
[2017-01-16] MEDS: ASCORBIC ACID 500 MG TABLET PO SCH ×2 (08:47→16:28)
[2017-01-16] MEDS: MULTIVITAMINS,THERAGRAN 1 UDTAB TABLET PO SCH (08:47)
[2017-01-16] MEDS: GABAPENTIN 400 MG CAPSULE PO SCH ×3 (08:47→16:28)
[2017-01-16] MEDS: OLANZAPINE 5 MG/TAB.RAPDIS PO SCH ×3 (08:48→16:28)
[2017-01-16] MEDS: LACTULOSE 10 G/15 ML UDC (PYXIS) PO SCH (08:48)
[2017-01-16] MEDS: BACLOFEN (10 MG) 10 MG TABLET PO SCH ×4 (08:48→21:30)
[2017-01-16] MEDS: PANTOPRAZOLE 40 MG TABLET.DR PO SCH (08:49)
[2017-01-16] MEDS: ZINC SULFATE 220 MG CAPSULE PO SCH (08:49)
[2017-01-16] MEDS: VANCOMYCIN 1.25 GM in IV D5W 500 ML IV SCH ×2 (08:55→21:06)
[2017-01-16] MEDS: DAKINS QUARTER STRENGTH (0.125%) 480 ML BOTTLE TOP SCH ×2 (09:00)
[2017-01-16] MEDS: HYDROGEL DRESSING 90 GM TUBE TP SCH (09:00)
[2017-01-16] MEDS: HYDROCODONE/APAP 5/325MG 1 EACH TABLET PO PRN (12:17)
[2017-01-16] MEDS: Magnesium 1GM/D5W 100ML PREMIX 100 ML IV SCH ×2 (12:27→14:15)
[2017-01-16] MEDS: MORPHINE SULFATE INJ 2 MG/ML DISP.SYRIN IV PRN ×2 (14:58→21:24)
[2017-01-16 16:00] VITALS: BP 103/63
[2017-01-16 20:00] VITALS: BP 110/67
[2017-01-16] MEDS: IV NS 0.9% 1,000 ML IV PRN (21:14)
[2017-01-16] MEDS: ENOXAPARIN SODIUM 40 MG/0.4 ML DISP.SYRIN SQ SCH (21:30)
[2017-01-16] MEDS: *INSULIN REGULAR(HUMULIN R)HUM 100 UNIT/ML VIAL SQ PRN (21:41)
[2017-01-16 22:49] VITALS: BP 110/67
--- NOTE | 2017-01-16 23:04 | NUR ---
RN NOTES RECEIVED PATIENT IN BED AWAKE, COMPLAINED OF PAIN AT THE SPINE, MORPHINE 2MG ADMINISTERED WITH RELIEF. SEEN SLEEPING COMFORTABLY. NO RESPIRATORY DISTRESS, BREATHING EVEN AND UNLABORED. WILL CONTINUE TO MONITOR
[2017-01-17 04:00] VITALS: BP_SYST 107; BP_SYST 113; BP_DIAS 64; BP_DIAS 71
--- NOTE | 2017-01-17 06:48 | NUR ---
RN CLOSING NOTES COMFORTABLY SLEEPING IN BED. ADMINISTER MORPHINE TWICE FOR PAIN IN THE SPINE. NO RESPIRATORY DISTRESS OR SHORTNESS OF BREATH. VITAL SIGNS WNL. WILL ENDORSE TO AM SHIFT FOR CONTINUITY OF CARE.
[2017-01-17 07:03] LABS: CREATININE 0.8 mg/dL (0.6-1.3); MAGNESIUM 1.7 mg/dL (1.8-2.4); POTASSIUM 3.8 mmol/L (3.5-5.1)
[2017-01-17] MEDS: BLOOD SUGAR DIAGNOSTIC 1 EACH STRIP VI SCH ×4 (07:30→22:28)
[2017-01-17] MEDS: PANTOPRAZOLE 40 MG TABLET.DR PO SCH (07:30)
[2017-01-17 08:00] VITALS: BP 124/73
[2017-01-17] MEDS: LACTULOSE 10 G/15 ML UDC (PYXIS) PO SCH (08:48)
[2017-01-17] MEDS: DOCUSATE SODIUM 100 MG CAPSULE PO SCH ×2 (08:48→16:53)
[2017-01-17] MEDS: ZINC SULFATE 220 MG CAPSULE PO SCH (08:48)
[2017-01-17] MEDS: BACLOFEN (10 MG) 10 MG TABLET PO SCH ×4 (08:48→22:18)
[2017-01-17] MEDS: ASCORBIC ACID 500 MG TABLET PO SCH ×2 (08:48→16:53)
[2017-01-17] MEDS: GABAPENTIN 400 MG CAPSULE PO SCH ×3 (08:48→16:53)
[2017-01-17] MEDS: OLANZAPINE 5 MG/TAB.RAPDIS PO SCH ×3 (08:49→16:53)
[2017-01-17] MEDS: LACTOBACILLUS RHAMNOSUS GG 1 EACH CAP.SPRINK PO SCH ×2 (08:49→16:53)
[2017-01-17] MEDS: MULTIVITAMINS,THERAGRAN 1 UDTAB TABLET PO SCH (08:49)
[2017-01-17] MEDS: MORPHINE SULFATE INJ 2 MG/ML DISP.SYRIN IV PRN ×2 (08:53→14:57)
[2017-01-17] MEDS: VANCOMYCIN 1.25 GM in IV D5W 500 ML IV SCH ×2 (08:59→22:18)
[2017-01-17] MEDS: DAKINS QUARTER STRENGTH (0.125%) 480 ML BOTTLE TOP SCH ×2 (09:02)
[2017-01-17] MEDS: HYDROGEL DRESSING 90 GM TUBE TP SCH (09:03)
--- NOTE | 2017-01-17 09:24 | NUR ---
RN INITIAL NOTE PATIENT RECEIVED IN BED SLEEPING. EASILY AROUSED, ALERT AND ORIENTED. ABLE TO MAKE NEEDS KNOWN. NO S/S OF PAIN OR DISCOMFORT. RESPIRATIONS ARE EVEN AND UNLABORED. NO S/S OF RESPIRATORY DISTRESS OR SOB. SATING WELL ON ROOM AIR 97%. MAR CATHETER DRAINING TO GRAVITY. MIDLINE KETURAH 20 G RUNNING NO IRRITATION NOTED . SKIN IS WARM AND DRY TO TOUCH. SAFETY PRECAUTIONS OBSERVED. BED IN LOCKED, LOW POSITION WITH TWO SIDE RAILS UP. CALL LIGHT WITHIN REACH. WILL CONTINUE TO MONITOR.
--- NOTE | 2017-01-17 09:26 | NUR ---
RN NOTE DELAY IN 9AM ANTIBIOTIC DUE TO DELAY IN MEDICATION FROM THE PHARMACY . RN WILL CONTINUE TO FOLLOW PATIENT CURRENTLY HAS VANCOMYCIN RUNNING FOR 2 HRS STARTED AT 0900. RN WILL CONTINUE TO FOLLOW
[2017-01-17] MEDS: COLISTIMETHATE SODIUM 100 MG in IV NS 0.9% 50 ML IV SCH ×2 (11:14→22:17)
--- NOTE | 2017-01-17 11:17 | NUR ---
RN NOTE PT REFUSED INSULIN COVERAGE FOR 139 CBG RN WILL CONTINUE TO FOLLOW
[2017-01-17] MEDS: Magnesium 1GM/D5W 100ML PREMIX 100 ML IV SCH ×2 (12:10→13:36)
[2017-01-17] MEDS: HYDROCODONE/APAP 5/325MG 1 EACH TABLET PO PRN (13:35)
[2017-01-17 16:00] VITALS: BP 106/68
--- NOTE | 2017-01-17 18:15 | NUR ---
RN CLOSING NOTES NO ISSUE ARISE THROUGHOUT THE DAY PATIENT RESTING IN BED, SLEEPING ON AND OFF INTERMITTENTLY. NO C/O RESPIRATORY DISTRESS OR SOB. PAIN MANAGED THROUGHOUT SHIFT. KETURAH INTACT W/ NS @ 75ML/HR, TOLERATING WELL. MAR INTACT AND DRAINING YELLOW URINE. OSTOMY BAG INTACT, CHANGED ONCE DURING SHIFT BY PATIENT HIS REQUEST. NO SIGNIFICANT CHANGES DURING SHIFT. WILL ENDORSE MILES TO PM NURSE. PT STATED NO NEED FOR WOUND CARE AT THIS TIME, RN WILL ACKNOWLEDGE AND FOLLOW
[2017-01-17] MEDS: IV NS 0.9% 1,000 ML IV PRN (18:35)
--- NOTE | 2017-01-17 19:50 | NUR ---
MSRN FULLY AWAKE, VERBALIZING PAIN ON HIS BOTH LEGS, WANTED MORPHINE, AWAITING FROM PHARMACY FOR MS 2MG AVAILABILITY. ASSISTED BY FIRST OFFICER ON HIS EARLY PM CARE. CHANGED OWN COLOSTOMY. V/S STABLE. ALL NEEDS MADE.
[2017-01-17 20:00] VITALS: BP 136/91
[2017-01-17] MEDS: MORPHINE SULFATE INJ 4 MG/ML DISP.SYRIN IV PRN (20:24)
--- NOTE | 2017-01-17 22:15 | NUR ---
MSRN BS WAS 177 COVERED WITH 3 UNITS. SNACKS PROVIDED.
[2017-01-17] MEDS: ENOXAPARIN SODIUM 40 MG/0.4 ML DISP.SYRIN SQ SCH (22:19)
[2017-01-17] MEDS: *INSULIN REGULAR(HUMULIN R)HUM 100 UNIT/ML VIAL SQ PRN (23:00)
--- NOTE | 2017-01-18 01:03 | NUR ---
MSRN SLEEPING FEW HOURS AFTER MORPHINE IV. KEPT COMFORTABLE.
--- NOTE | 2017-01-18 03:05 | NUR ---
MSRN AWAKENED IN SEVERE PAIN PATIENT STATED, GENERALIZED, NOE SPINE, MORPHINE 2MG IVP ADMINISTERED. WANTED NORCO AT THE SAME TIME, PAIN MGT REVIEWED WITH PATIENT. BEDREST INSTRUCTED, PATIENT WANT TO GO FOR A SHOWER AFTER MORPHINE GIVEN. INSTRUCTED COMPLETE BEDREST.
[2017-01-18] MEDS: MORPHINE SULFATE INJ 4 MG/ML DISP.SYRIN IV PRN ×5 (03:07→20:58)
[2017-01-18 04:00] VITALS: BP 116/71
[2017-01-18 07:14] LABS: EOSINOPHILS # (AUTO) 0.3 /CMM (0.0-0.7); EOSINOPHILS % (AUTO) 5.6 % (0.0-6.0); HEMATOCRIT 33 % (39-51); HEMOGLOBIN 10.7 g/dL (13.5-17.5); LYMPHOCYTES # (AUTO) 1.4 /CMM (0.8-4.8); LYMPHOCYTES % (AUTO) 30.7 % (20.0-44.0); MEAN CORPUSCULAR HEMOGLOBIN 25 PG (26.0-33.0); MEAN CORPUSCULAR HGB CONC 32 g/dl (31.0-36.0); MEAN CORPUSCULAR VOLUME 78 fL (80-96); MONOCYTES # (AUTO) 0.4 /CMM (0.1-1.30); MONOCYTES % (AUTO) 8.4 % (2.0-12.0); NEUTROPHILS # (AUTO) 2.5 /CMM (1.8-8.9); NEUTROPHILS % (AUTO) 54.3 % (43.0-81.0); PLATELET COUNT (AUTO) 151 /CMM (150-450); RDW COEFFICIENT OF VARIATION 17.9 (11.5-15.0); RED BLOOD CELL COUNT(AUTO) 4.25 MIL/uL (4.5-6.0); WHITE BLOOD COUNT (AUTO) 4.6 K/uL (4.3-11.0)
[2017-01-18] MEDS: BLOOD SUGAR DIAGNOSTIC 1 EACH STRIP VI SCH ×4 (07:30→21:08)
[2017-01-18 07:55] LABS: CALCIUM, SERUM 8.4 mg/dL (8.5-10.1); CREATININE 0.8 mg/dL (0.6-1.3); MAGNESIUM 1.5 mg/dL (1.8-2.4); PHOSPHORUS 3.9 mg/dL (2.5-4.9); POTASSIUM 4.1 mmol/L (3.5-5.1)
[2017-01-18 08:00] VITALS: BP_SYST 124; BP_SYST 138; BP_DIAS 70; BP_DIAS 84
--- NOTE | 2017-01-18 08:00 | NUR ---
RN INITIAL NOTE PATIENT RECEIVED IN SEATING UPRIGHT IN BED . EASILY AROUSED, ALERT AND ORIENTED. ABLE TO MAKE NEEDS KNOWN. NO S/S OF PAIN OR DISCOMFORT HOWEVER PATIENT REQUESTING PAIN MEDICATION AT THIS TIME . RESPIRATIONS ARE EVEN AND UNLABORED. NO S/S OF RESPIRATORY DISTRESS OR SOB. SATING WELL ON ROOM AIR 99%. MAR CATHETER DRAINING TO GRAVITY. MIDLINE KETURAH 20 G RUNNING NO IRRITATION NOTED . SKIN IS WARM AND DRY TO TOUCH. SAFETY PRECAUTIONS OBSERVED. BED IN LOCKED, LOW POSITION WITH TWO SIDE RAILS UP. CALL LIGHT WITHIN REACH. WILL CONTINUE TO MONITOR.
--- NOTE | 2017-01-18 08:20 | NUR ---
RN NOTE RN ADMINISTERED MORNING MEDICATION AT THIS TIME , COMPUTER SYSTEM DOWN AT THE TIME , DOCUMENTED ON PAPER FORMS
--- NOTE | 2017-01-18 09:20 | NUR ---
RN NOTE PATIENTS MIDLINE NOTE TO BE LEAKING , RN ATTEMPTED TO INSERT A PERIPHERAL IV PATIENT REFUSED ANTIBIOTICS STOPPED CHARGE NURSE INFORMED , TRUCK CHAUFFEUR NOTIFIED FOR REINSERT OF MIDLINE. RN WILL CONTINUE TO FOLLOW
[2017-01-18] MEDS: DOCUSATE SODIUM 100 MG CAPSULE PO SCH ×2 (09:30→16:48)
[2017-01-18] MEDS: ASCORBIC ACID 500 MG TABLET PO SCH ×2 (09:30→16:48)
[2017-01-18] MEDS: ZINC SULFATE 220 MG CAPSULE PO SCH (09:30)
[2017-01-18] MEDS: LACTOBACILLUS RHAMNOSUS GG 1 EACH CAP.SPRINK PO SCH ×2 (09:30→16:48)
[2017-01-18] MEDS: PANTOPRAZOLE 40 MG TABLET.DR PO SCH (09:30)
[2017-01-18] MEDS: BACLOFEN (10 MG) 10 MG TABLET PO SCH ×4 (09:31→20:44)
[2017-01-18] MEDS: MULTIVITAMINS,THERAGRAN 1 UDTAB TABLET PO SCH (09:31)
[2017-01-18] MEDS: VANCOMYCIN 1.25 GM in IV D5W 500 ML IV SCH ×2 (09:31→20:42)
[2017-01-18] MEDS: GABAPENTIN 400 MG CAPSULE PO SCH ×4 (09:31→20:44)
[2017-01-18] MEDS: LACTULOSE 10 G/15 ML UDC (PYXIS) PO SCH (09:31)
[2017-01-18] MEDS: OLANZAPINE 5 MG/TAB.RAPDIS PO SCH ×3 (09:32→16:48)
[2017-01-18] MEDS: DAKINS QUARTER STRENGTH (0.125%) 480 ML BOTTLE TOP SCH ×2 (09:32)
[2017-01-18] MEDS: HYDROGEL DRESSING 90 GM TUBE TP SCH (09:32)
[2017-01-18 10:03] LABS: IRON, SERUM 24 ug/dl (50-175); TOTAL IRON BINDING CAPACITY 315 ug/dl (250-450)
[2017-01-18] MEDS: HYDROCODONE/APAP 5/325MG 1 EACH TABLET PO PRN (10:18)
[2017-01-18] MEDS ORDERED: HYDROCODONE/APAP 10/325MG 1 EA TABLET PO PRN (11:30)
[2017-01-18] MEDS: COLISTIMETHATE SODIUM 100 MG in IV NS 0.9% 50 ML IV SCH ×2 (12:39→21:16)
[2017-01-18] MEDS: Magnesium 1GM/D5W 100ML PREMIX 100 ML IV SCH ×2 (15:04→16:26)
[2017-01-18 16:00] VITALS: BP 121/68
--- NOTE | 2017-01-18 18:24 | NUR ---
RN NOTE PATIENT IS NON COMPLAINT WITH CCHO DIET. RN EDUCATION GIVEN UNABLE TO SCALE PATIENT UNDERSTANDING CHARGE NURSE SUMAN NOTIFIED
--- NOTE | 2017-01-18 18:24 | NUR ---
RN NOTE RN EXPERIENCED ISSUES WITH HANDHELD SCANNER , CHARGE NURSE SUMAN NOTIFIED 5 RIGHT OF MEDICATION COMPLETED AND VERIFIED . ALL NEED MET
[2017-01-18 20:00] VITALS: BP 116/71
--- NOTE | 2017-01-18 20:00 | NUR ---
RN NOTES RECEIVED PATIENT IN BED, AWAKE, ALERT AND ORIENTED. VERBALLY COMMUNICATE NEEDS. NO DISTRESS NOTED. COMPLAINED OF PAIN AT THE SPINE AREA, MORPHINE 2MG ADMINISTERED WITH RELIEF. COLOSTOMY IN PLACE WITH SMALL BOWEL MOVEMENT NOTED. FC PATENT AND INTACT DRAINING CLEAR YELLOW WITH NO FOUL ODOR URINE. WILL CONTINUE TO MONITOR.
[2017-01-18] MEDS: ENOXAPARIN SODIUM 40 MG/0.4 ML DISP.SYRIN SQ SCH (20:46)
[2017-01-18] MEDS: INSULIN REGULAR, HUMAN 100 UNIT/ML 3 ML VIAL SQ PRN (21:14)
[2017-01-19] MEDS: IV NS 0.9% 1,000 ML IV PRN (02:44)
[2017-01-19 04:00] VITALS: BP_SYST 116; BP_SYST 128; BP_DIAS 71; BP_DIAS 77
[2017-01-19] MEDS: MORPHINE SULFATE INJ 4 MG/ML DISP.SYRIN IV PRN ×2 (05:01→09:31)
[2017-01-19 06:40] LABS: CALCIUM, SERUM 8.5 mg/dL (8.5-10.1); CREATININE 0.9 mg/dL (0.6-1.3); MAGNESIUM 1.3 mg/dL (1.8-2.4); POTASSIUM 3.9 mmol/L (3.5-5.1)
--- NOTE | 2017-01-19 07:05 | NUR ---
MS INITIAL RN NOTE: RECEIVED PATIENT IN BED, AWAKE, ALERT AND ORIENTED. RESPIRATIONS EVEN AND UNLABORED. DEMETRI MIDLINE PATENT AND INTACT. COLOSTOMY IN PLACE WITH SMALL BOWEL MOVEMENT NOTED. FC PATENT AND INTACT DRAINING CLEAR YELLOW AND DRAINING TO GRAVITY. BED LOW, LOCKED WITH CALL LIGHT WITHIN REACH. ALL NEEDS MET AND ANTICIPATED. WILL CONTINUE TO MONITOR. .
--- NOTE | 2017-01-19 07:42 | NUR ---
RN CLOSING NOTES IN BED SLEEPING, NO DISTRESS NOTED. COMPLAINED OF PAIN, ADMINISTERED MORPHINE 2 MG X 2 WITH RELIEF. NO SIGNIFICANT CHANGE OF CONDITION. WILL ENDORSE TO AM SHIFT FOR CONTINUATION OF CARE.
--- NOTE | 2017-01-19 07:47 | NUR ---
RN CLOSING NOTES IN BED SLEEPING, NO DISTRESS NOTED. NO PHYSICAL MANIFESTATION OF PAIN OR DISCOMFORT. NO SIGNIFICANT CHANGE OF CONDITION. SCHEDULED FOR INSERTION OF PEG TUBE. HELD FEEDING, NPO AND NO BLOOD THINNER STARTING MIDNIGHT. WILL ENDORSE TO AM SHIFT FOR CONTINUATION OF CARE.
[2017-01-19 08:00] VITALS: BP 146/73
[2017-01-19] MEDS: ZINC SULFATE 220 MG CAPSULE PO SCH (09:28)
[2017-01-19] MEDS: ASCORBIC ACID 500 MG TABLET PO SCH ×2 (09:28→16:27)
[2017-01-19] MEDS: BACLOFEN (10 MG) 10 MG TABLET PO SCH ×3 (09:28→16:17)
[2017-01-19] MEDS: LACTOBACILLUS RHAMNOSUS GG 1 EACH CAP.SPRINK PO SCH ×2 (09:29→16:18)
[2017-01-19] MEDS: MULTIVITAMINS,THERAGRAN 1 UDTAB TABLET PO SCH (09:29)
[2017-01-19] MEDS: PANTOPRAZOLE 40 MG TABLET.DR PO SCH ×2 (09:29→09:55)
[2017-01-19] MEDS: GABAPENTIN 400 MG CAPSULE PO SCH ×3 (09:29→16:17)
--- NOTE | 2017-01-19 09:30 | NUR ---
MS RN NOTE: PATIENT C/O BACK PAIN ADULT PAIN SCALE 9-10 OUT OF 10. MORPHINE SULFATE 2MG VIA IV GIVEN. WILL REASSESS AND CONTINUE TO MONITOR.
[2017-01-19] MEDS: BLOOD SUGAR DIAGNOSTIC 1 EACH STRIP VI SCH ×3 (09:55→13:45)
[2017-01-19] MEDS ORDERED: Magnesium 1GM/D5W 100ML PREMIX 100 ML IV SCH (09:57)
[2017-01-19] MEDS: LACTULOSE 10 G/15 ML UDC (PYXIS) PO SCH (10:13)
[2017-01-19] MEDS: OLANZAPINE 5 MG/TAB.RAPDIS PO SCH ×3 (10:13→16:18)
[2017-01-19] MEDS: DOCUSATE SODIUM 100 MG CAPSULE PO SCH ×2 (10:14→16:18)
[2017-01-19] MEDS: COLISTIMETHATE SODIUM 100 MG in IV NS 0.9% 50 ML IV SCH (11:13)
[2017-01-19] MEDS: HYDROGEL DRESSING 90 GM TUBE TP SCH (11:14)
[2017-01-19] MEDS: INSULIN REGULAR, HUMAN 100 UNIT/ML 3 ML VIAL SQ PRN (11:17)
--- NOTE | 2017-01-19 12:05 | NUR ---
MS RN NOTE: PATIENT PULLING ON COLOSTOMY BAG. EDUCATED PATIENT ON NEED FOR COLOSTOMY BAG. WILL CONT TO MONITOR.
--- NOTE | 2017-01-19 12:10 | NUR ---
MS RN NOTE: NELIA JAIN SEEN PATIENT AT BEDSIDE. D/C ORDER.
[2017-01-19] MEDS: VANCOMYCIN 1.25 GM in IV D5W 500 ML IV SCH (13:40)
[2017-01-19] MEDS: *INSULIN REGULAR(HUMULIN R)HUM 100 UNIT/ML VIAL SQ PRN (13:45)
[2017-01-19] MEDS ORDERED: VANC1PLA9 IV (13:51)
[2017-01-19] MEDS ORDERED: COLI150V IV (13:51)
--- NOTE | 2017-01-19 15:30 | NUR ---
MS RN NOTE: MASONRY INSTALLER TONI VASQUEZ FROM [facility] AT BEDSIDE [phone]. CONFIRMED PATIENT IS FROM [facility] AND BED ON HOLD FOR HIM.
--- NOTE | 2017-01-19 15:53 | NUR ---
MS RN NOTE: PATIENT REFUSED VITALS AND WOUND PICTURES. EDUCATED PATIENT OF RISKS AND BENEFITS X3, BUT PATIENT STILL REFUSED SAYING "I'M ALREADY LEAVING SO I DON'T NEED THAT." WILL CONT TO MONITOR.
[2017-01-19] MEDS: DAKINS QUARTER STRENGTH (0.125%) 480 ML BOTTLE TOP SCH (16:31)
--- NOTE | 2017-01-19 17:30 | NUR ---
[facility] ARCHIT[facility] NOTE: PATIENT D/C BACK TO [facility] IN STABLE CONDITION. A&OX3, RESPIRATIONS EVEN AND UNLABORED. NO SOB NOTED. REFUSED PICTURES AND VITAL SIGNS. BELONGINGS RETURNED, REFUSED TO SIGN FORM. D/C PAPERWORK FOR PATIENT GIVEN TO PALLET ASSEMBLER. PATIENT LEFT VIA GURNEY WITH 3 PALLET ASSEMBLER.
== END 2017-01-19 18:09 | DRG 405 ==
LOC: ER 18:51 → MEDSG1 22:45
PROC: 05H533Z Insertion of Infusion Device into Right Subclavian Vein, Percutaneous Approach (ICD-10-PCS; principal; 2017-01-09)
PROC: 0JBC0ZZ Excision of Pelvic Region Subcutaneous Tissue and Fascia, Open Approach (ICD-10-PCS; 2017-01-12)
PROC: 0QB10ZZ Excision of Sacrum, Open Approach (ICD-10-PCS; 2017-01-12)
DX: Z68.37 Body mass index [BMI] 37.0-37.9, adult (principal); A41.9 Sepsis, unspecified organism; L89.154 Pressure ulcer of sacral region, stage 4; D61.818 Other pancytopenia; E87.2 Acidosis; D68.59 Other primary thrombophilia; G82.20 Paraplegia, unspecified; E11.65 Type 2 diabetes mellitus with hyperglycemia; E11.69 Type 2 diabetes mellitus with other specified complication; B37.49 Other urogenital candidiasis; N13.30 Unspecified hydronephrosis; K80.20 Calculus of gallbladder without cholecystitis without obstruction; L03.119 Cellulitis of unspecified part of limb; E83.42 Hypomagnesemia; Z93.3 Colostomy status; Z83.3 Family history of diabetes mellitus; Z79.4 Long term (current) use of insulin; W19.XXXA Unspecified fall, initial encounter; E03.9 Hypothyroidism, unspecified; D50.9 Iron deficiency anemia, unspecified; M46.28 Osteomyelitis of vertebra, sacral and sacrococcygeal region; M16.10 Unilateral primary osteoarthritis, unspecified hip; M47.9 Spondylosis, unspecified; I10 Essential (primary) hypertension; E78.1 Pure hyperglyceridemia; E66.01 Morbid (severe) obesity due to excess calories; E83.51 Hypocalcemia; K59.00 Constipation, unspecified; J98.11 Atelectasis; F29 Unspecified psychosis not due to a substance or known physiological condition; M51.45 Schmorl's nodes, thoracolumbar region; N31.9 Neuromuscular dysfunction of bladder, unspecified; F60.9 Personality disorder, unspecified; B37.9 Candidiasis, unspecified; L03.317 Cellulitis of buttock; B96.89 Other specified bacterial agents as the cause of diseases classified elsewhere; T14.8 Other injury of unspecified body region; W34.00XS Accidental discharge from unspecified firearms or gun, sequela
CPT/HCPCS: 36415; 36569; 72128-TC; 80048-TC; 80061-TC; 80076-TC; 80202-TC; 81000-TC; 82728-TC; 82962-TC; 83540-TC; 83605-TC; 83690-TC; 83735-TC; 84100-TC; 84443-TC; 85025-TC; 85652-TC; 85730-TC; 86140-TC; 87040-TC; 87070-TC; 87081-TC; 87086-TC; 87186-TC; 97001-TC; 97112-TC; 97530-TC; A4216; A4606; A6248; A6253; A6402; A6403; J0692; J0770; J1450; J1650; J1815; J2248; J2270; J2405; J3370; J3475; J3490; J7030; J7060; Z7610

== ENCOUNTER 2017-02-18 14:03 | Emergency (ER) | payer OTHER ==
[~2017-02-18] VITALS: Ht 167.6 cm; Wt 79.4 kg
[~2017-02-18 14:03] MED LIST: ASCO500T9 PO; BACL20TA PO; COLI150V IV; DOCU-170 PO; GABA-536 PO; HYDR-552 PO; LACT10SO PO; MULT1TAB73 PO; SENN8.6T6 PO; VANC1PLA9 IV; ZINC220C8 PO
--- NOTE | 2017-02-18 14:12 | NUR ---
PT BIBRA FROM THE STREETS TO ER BED 12. PT IS C/O DIFFUSE ABDOMINAL PAIN. ADMITS TO BEEN DRINKING. PT DENIES N/V. COLOSTOMY AND F/C NOTED. PT HAS STAGE IV PRESSURE SORES NOTED TO SACRAL AND BUTTOCK AREA. PICC PRINCESS TO [facility]. STATES BEEN HAVING IV ANTIBIOTIC FOR HIS PRESSURE SORES. PT IS AAOX3. PLACED ON MONITOR. AWAITING MD RICKETTS.
--- NOTE | 2017-02-18 14:15 | NUR ---
DR MAHONEY AT BEDSIDE FOR EVAL.
[2017-02-18] MEDS ORDERED: IV NS 0.9% 1,000 ML BAG IV ONE (14:30)
[2017-02-18] MEDS ORDERED: PANTOPRAZOLE 40 MG VIAL IV ONE (14:30)
[2017-02-18 14:36] LABS: BASOPHILS # (AUTO) 0.1 /CMM (0.0-0.2); EOSINOPHILS # (AUTO) 0.1 /CMM (0.0-0.7); EOSINOPHILS % (AUTO) 1.6 % (0.0-6.0); HEMATOCRIT 35 % (39-51); HEMOGLOBIN 11.1 g/dL (13.5-17.5); LYMPHOCYTES # (AUTO) 1.5 /CMM (0.8-4.8); LYMPHOCYTES % (AUTO) 21.4 % (20.0-44.0); MEAN CORPUSCULAR HEMOGLOBIN 24 PG (26.0-33.0); MEAN CORPUSCULAR HGB CONC 32 g/dl (31.0-36.0); MEAN CORPUSCULAR VOLUME 76 fL (80-96); MONOCYTES # (AUTO) 0.5 /CMM (0.1-1.30); MONOCYTES % (AUTO) 7.1 % (2.0-12.0); NEUTROPHILS # (AUTO) 4.7 /CMM (1.8-8.9); NEUTROPHILS % (AUTO) 68.9 % (43.0-81.0); PLATELET COUNT (AUTO) 248 /CMM (150-450); RED BLOOD CELL COUNT(AUTO) 4.54 MIL/uL (4.5-6.0); WHITE BLOOD COUNT (AUTO) 6.9 K/uL (4.3-11.0)
--- NOTE | 2017-02-18 14:39 | NUR ---
PT TO RADIOLOGY FOR ABDOMINAL CT SCAN VIA [facility].
[2017-02-18] MEDS ORDERED: PANTOPRAZOLE 40 MG VIAL ONE (14:41)
[2017-02-18 14:49] LABS: INR 1.02 (0.87-1.13); PROTHROMBIN TIME 10.6 SECS (9.5-12.7)
[2017-02-18 14:53] LABS: ALANINE AMINOTRANSFERASE 28 U/L (12-78); ALKALINE PHOSPHATASE 143 U/L (46-116); ASPARTATE AMINOTRANSFERASE 18 U/L (15-37); BILIRUBIN,DIRECT 0.1 mg/dL (0.0-0.2); BILIRUBIN,TOTAL 0.2 mg/dL (0.2-1.0); CALCIUM, SERUM 8.1 mg/dL (8.5-10.1); CARBON DIOXIDE 24 mmol/L (21-32); CHLORIDE 95 mmol/L (98-107); GLUCOSE 276 mg/dL (74-106); LIPASE 126 U/L (73-393); POTASSIUM 3.3 mmol/L (3.5-5.1); SODIUM SERUM 131 mmol/L (136-145); TOTAL PROTEIN, SERUM 8.1 g/dL (6.4-8.2); UREA NITROGEN, BLOOD 4 mg/dL (7-18)
[2017-02-18 14:56] LABS: TROPONIN I < 0.017 ng/mL (0.00-0.056)
[2017-02-18] MEDS ORDERED: IV LR 1000 ML 1,000 ML IV ONE (15:00)
[2017-02-18] MEDS ORDERED: POTASSIUM CHLORIDE 20 MEQ TAB.PRT.SR PO ONE ×2 (15:00→15:12)
[2017-02-18 15:38] LABS: APPEARANCE,URINE Clear (CLEAR); BILIRUBIN,URINE Negative (NEGATIVE); BLOOD, URINE Trace-lysed Ery/uL (NEGATIVE); COLOR,URINE Yellow (YELLOW); KETONES,URINE Negative (NEGATIVE); LEUKOCYTE ESTERASE ,URINE Trace (NEGATIVE); NITRITE, URINE Negative (NEGATIVE); PROTEIN,URINE Negative (NEGATIVE); UGLUCOSE 100 MG/DL mg/dL (NEGATIVE); UROBILINOGEN,URINE 0.2 EU/dL (0.2)
[2017-02-18 15:49] LABS: BACTERIA,URINE Rare /HPF (None Seen); SQUAMOUS EPITHELIAL CELL,UR Few /HPF (None Seen)
[2017-02-18] MEDS ORDERED: INSULIN REGULAR, HUMAN 100 UNIT/ML 10 ML VIAL SQ ONE (16:00)
[2017-02-18] MEDS ORDERED: INSULIN REGULAR, HUMAN 100 UNIT/ML 10 ML VIAL ONE (16:04)
--- NOTE | 2017-02-18 16:05 | NUR ---
witnessed 4 units SQ regular insulin - LLQ - given by Truong RUTHERFORD
[2017-02-18] MEDS ORDERED: SUCRALFATE 1 G TABLET PO ONE (17:30)
--- NOTE | 2017-02-18 17:32 | NUR ---
PATIENT IS A RESIDENT AT "[facility]" [phone] - MARIS[place] (INFORMATION RESOURCES MANAGER) [address] [place] [address]
[2017-02-18] MEDS ORDERED: SUCRALFATE 1 G TABLET ONE (17:37)
--- NOTE | 2017-02-18 18:15 | NUR ---
[facility] CALLED, ETA FOR [place] WILL BE 1930.
[2017-02-18 18:58] VITALS: BP 131/88
== END 2017-02-18 18:59 ==
LOC: ER 14:04
DX: K29.20 Alcoholic gastritis without bleeding (principal); D64.9 Anemia, unspecified; E11.65 Type 2 diabetes mellitus with hyperglycemia; E87.1 Hypo-osmolality and hyponatremia; E87.6 Hypokalemia; G82.20 Paraplegia, unspecified; I10 Essential (primary) hypertension; Z59.0 Homelessness; Z93.3 Colostomy status
CPT/HCPCS: 36415; 74176; 80048; 80076; 81001; 83690; 84484; 85025; 85730; 93005; 96372; 96374; 99285; A4606; A6403; C9113; G0480; J1815; J7030; J7120 ×2; Z7610; 71250-TC; 81000-TC